=== PATIENT | female | born 1945 | race Caucasian/White ===

== ENCOUNTER 2024-05-02 14:45 | Emergency (ER) | payer MEDICARE, BC, SELFPAY ==
[2024-05-02 14:51] VITALS: BP 154/67; PULSE 75; RESP 16; TEMP 36.7; O2SAT 96; BMI 27.3
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
[2024-05-02 16:11] VITALS: BP 126/70; PULSE 56; O2SAT 96
== END 2024-05-02 16:13 | disposition home or self-care (01) ==
PROVIDERS: Emergency Provider Emergency Medicine
DX: S16.1XXA Strain of muscle, fascia and tendon at neck level, initial encounter (principal); V43.92XA Unspecified car occupant injured in collision with other type car in traffic accident, initial encounter; Y92.410 Unspecified street and highway as the place of occurrence of the external cause
CPT/HCPCS: 70450; 72125; 99284